=== PATIENT | male | born 1995 | race Hispanic/Latino ===

== ENCOUNTER 2021-12-11 15:15 | Emergency (ER) | payer OTHER, SELFPAY ==
[2021-12-11 15:17] VITALS: BP 132/89; PULSE 66; RESP 16; TEMP 36.3; O2SAT 98; BMI 25.4
--- NOTE | 2021-12-11 15:35 | EX.ED.UPPERE ---
HPI History of Present Illness Chief Complaint: Upper Extremity Injury Informant: patient Occured/Mechanism Mechanism/Context: Yes injury Onset/Context/Timing Onset: Today and Hours Context: Sudden Onset Timing: Continuous Quality of Pain: Sharp Current Severity: Mild Maximum Severity: Moderate Associated Symptoms Associated Symptoms: Negative for Parasthesia, Weakness and Loss of Funtion Narrative Narrative: 26-year-old speaking male works at a local [employer]. Got his left hand small finger caught in the machine there and now has a significant laceration. This occurred within the last several hours. He is right-hand dominant. He denies any other injuries. He states he is never been vaccinated. Denies any prior surgery to this hand. This is reportedly a workers comp injury. Tetanus Immunization: Unknown Prior similar symptoms: No Recent Illness/Hospitalization: No PFSH PFSH Medical History no medical history no medical history Home Medications NK 12/11/21 [History Last Taken Unknown] Allergy/AdvReac Type Severity Reaction Status Date / Time No Known Allergies Allergy Verified 12/11/21 15:31 Surgical History no surgical history no surgical history Social History Smoking Status: Never smoker ROS ROS ED ROS Narrative No recent illness. Review of Systems ROS Unobtainable: Denies due to encephalopathy Constitutional Constitutional ED: Denies fever(s) Eyes Eyes: Denies change in vision ENT ENT ED: Denies ear pain Cardiovascular Cardiovascular: Denies chest pain Respiratory/Chest Respiratory/Chest: Denies cough or dyspnea Gastrointestinal Gastrointestinal: Denies abdominal pain or nausea Genitourinary Genitourinary ED: Denies dysuria Musculoskeletal Musculoskeletal: Denies myalgias Neurologic Neurologic: Denies headache(s) Psychiatric Psychiatric: Denies depression Endocrine Endocrinology: Denies polyuria Hematologic/Lymphatic Hematologic/Lymphatic: Denies easy bruising Allergic/Immunologic Allergic/Immunologic ED: Denies urticaria EXAM Physical Exam Narrative Exam Narrative: 27-year-old male no acute distress exam normal except left hand base of the left small finger on the ulnar side there is a laceration at the MCP joint. Patient has full flexion-extension of all digits of his left hand. He can open hand to make a fist. He can flex and extend against resistance. Distally he has normal cap refill and touch sensation. There does not appear to be any neurovascular injuries. He does not appear to be any tendon injuries. I do not appreciate any foreign body. There is normal cap refill the tip of the finger. There is no involvement at this time seen of the joint or the bone. Wound needs repaired. Const Vital Signs: 12/11/21 15:17 Temperature 97.4 F L Temperature Source Temporal Pulse Rate 66 Respiratory Rate 16 Blood Pressure 132/89 H Blood Pressure Mean 103 Pulse Ox 98 Oxygen Delivery Method Room Air Positive well nourished and well developed; Negative for obese, cachectic, contractures or unkempt General Appearance ED: well developed and NAD; Negative for unkempt, cachectic, contractures, cyanotic or diaphoretic Nutritional Appearance: Negative for cachectic or obese HEENT Reports moist mucous membranes normocephalic and atraumatic; Negative for trauma or tenderness Eyes PERRL and EOMs intact bilaterally Neck full ROM and supple General: Negative for tenderness Chest Wall inspection of chest normal and palpation of chest normal Resp normal respiratory effort and clear to auscultation bilaterally Effort and Inspection: Negative for pain with movement Auscultation: Negative for rales, rhonchi or wheezes Cardio regular rate, regular rhythm, S1 normal heart sound, S2 normal heart sound and no murmurs GI non-tender, non-distended and no masses Auscultation: normoactive bowel sounds Palpation: soft; Negative for tender or guarding Back/Spine no CVA tenderness General Back: Negative for CVA tenderness Cervical Spine: Negative for cervical spine tenderness Thoracic Spine / Upper Back: Negative for thoracic spinal tenderness Extremity normal to inspection and full ROM Extremity Narrative: Except left small finger. At the base. There is laceration on the ulnar side. Patient still has full flexion-extension of the left small finger. Normal touch sensation. Normal cap refill. No bony deformity. No foreign body noted. General Extremety ED: Negative for edema General Extremity: Negative for edema Neuro oriented x3 and moves all extremities Sensorium / Orientation: alert, oriented to person, oriented to place and oriented to time; Negative for orientation impaired, lethargic or stuporous Motor Exam: strength 5/5 throughout Psych mental status grossly normal Appearance: Negative for unkempt Mood & Affect: Negative for depressed Skin Lesions: no lesions Rashes: no rashes Trauma: laceration; Negative for no lacerations or abrasions MDM MDM MDM Narrative Medical decision making narrative: 26-year-old [id number] male has a laceration to his left small finger near the MCP on the ulnar side. Needs to be repaired. His tetanus will need to be updated with both tetanus immunoglobulin and Adacel because he is never been vaccinated he states. Higher history was obtained using the agency service representative phone. Procedures Lacerations Left small finger laceration: Length: 1.57 in Depth: Sub Q Shape: Linear Prep: Shure-Clens Laceration repair: Irrigated, Lidocaine, Local and Skin sutures Number of Sutures/[place]: 8 Suture Information: Ethilon and 4-0 Comment: Laceration approximately 4 cm. Involve the skin and subcu tissue. I did not see any involvement of any nerve, tendon, ligament, bone or the joint. Local anesthetized with lidocaine. Washed with Shur-Clens then saline and copiously irrigated. Explored. No foreign body noted. Closed using 8 simple interrupted 4-0 Ethilon sutures. Proper hemostasis wound closure obtained. Patient tolerated procedure well. Instructed on wound care. Discharge Plan Triage Chief Complaint: Upper Extremity Injury ED Provider: Sanket Dillard Dx/Rx/DC Orders Clinical Impression: Finger laceration Instructions: ED Laceration, Hand: All Closures Prescriptions: No Action NK RF: 0 Primary Care Provider: Care Physician,No Primary Referrals: Corporate,Care [GROUP OF PHYSICIANS] - 10 Day for suture removal NOT,DEFINED [NON-STAFF] - Activity Restrictions/Additional Instructions: Clean daily with soap and water. Keep dry at work. Stitches out in 10 - 14 days. Watch for any signs of infection such as redness, pus, red streaks, fever or significant swelling if seen. Return. Print Language: Cuban Disposition Disposition: Home, Self Care
[2021-12-11] MEDS: Diphth,Pertuss(Acell),Tet Vac 0.5 ML Vial IM (15:52)
[2021-12-11] MEDS: Lidocaine 1% (20 ml mdv) 20 ML Vial 10 ML INFILT (16:50)
--- NOTE | 2021-12-11 16:56 | ED.RN ---
FROI have been filled out by patient and signed by DR. Dillard. Patient has been given a copy for his medical records. FROI given to corporate secretary
== END 2021-12-11 16:59 | disposition home or self-care (01) ==
PROVIDERS: Emergency Provider Emergency Medicine; Visit Provider Emergency Medicine
DX: S61.217A Laceration without foreign body of left little finger without damage to nail, initial encounter (principal); W31.89XA Contact with other specified machinery, initial encounter; Y93.89 Activity, other specified; Y99.0 Civilian activity done for income or pay; Y92.89 Other specified places as the place of occurrence of the external cause
CPT/HCPCS: 12002; 90471; 90715; 99283; J1670